=== PATIENT | male | born 1985 | race Asian ===

== ENCOUNTER 2017-09-14 00:26 | Emergency (ER) | payer SELFPAY ==
[~2017-09-14] VITALS: Ht 157.5 cm; Wt 128.0 kg
[2017-09-14 00:27] VITALS: BP 149/93
[2017-09-14] MEDS ORDERED: KETOROLAC 30 MG/1 ML ONE (00:46)
[2017-09-14] MEDS ORDERED: COLCHICINE 0.6 MG TABLET ONE (00:46)
[2017-09-14] MEDS ORDERED: OXYcodone/APAP 5/325MG TABLET ONE (00:46)
[2017-09-14] MEDS ORDERED: OXYcodone/APAP 5/325MG TABLET PO ONE (01:00)
[2017-09-14] MEDS ORDERED: COLCHICINE 0.6 MG TABLET PO ONE (01:00)
[2017-09-14] MEDS ORDERED: KETOROLAC 30 MG/1 ML IM ONE (01:00)
== END 2017-09-14 01:05 | disposition home or self-care (01) ==
LOC: ED 00:50
DX: M10.071 Idiopathic gout, right ankle and foot (principal); F17.200 Nicotine dependence, unspecified, uncomplicated
CPT/HCPCS: 96372; 99283; J1885